=== PATIENT | male | born 1950 | race Caucasian/White ===

== ENCOUNTER 2018-06-30 11:36 | Emergency (ER) | payer OTHER ==
[2018-06-30] MEDS ORDERED: ALBUTEROL 2.5 MG/3 ML NEB SOL ONE (12:59)
[2018-06-30] MEDS ORDERED: IPRATROPIUM BROM 0.5MG/2.5ML ONE (12:59)
[2018-06-30 13:13] LABS: Absolute Lymphocytes (CBC) 3.3 K/uL (0.7-4.9); Absolute Monocytes 0.9 K/uL (0.1-1.3); Absolute Neutrophil 7.8 K/uL (1.8-8.0); Basophils % 0.3 % (0-1.3); Eosinophils % 2.5 % (0-4.4); Hematocrit 38.8 % (39.6-49.0); Lymphocytes % 26.6 % (15.3-44.8); MCH 27.8 pg (27.0-35.0); MCV 83.8 fL (80-100); MPV 8.8 fL (7.6-11.3); RBC Red Blood Cell Count 4.63 M/uL (4.33-5.43)
[2018-06-30 13:20] LABS: Protime INR 1.07
[2018-06-30 13:33] LABS: ALT/SGPT 25 U/L (12-78); AST/SGOT 15 U/L (15-37); Albumin 3.1 g/dL (3.4-5.0); Alkaline Phosphatase 108 U/L (45-117); BUN Blood Urea Nitrogen 16 mg/dL (7-18); Bicarbonate 26 mmol/L (21-32); Bilirubin Direct < 0.1 mg/dL (0-0.2); Bilirubin Total 0.3 mg/dL (0.2-1.0); Glucose Level 122 mg/dL (74-106); Magnesium 1.8 mg/dL (1.8-2.4); NT PRO-BNP 171 pg/mL (<125); Potassium 4.9 mmol/L (3.5-5.1); Protein, Total 7.8 g/dL (6.4-8.2); Sodium Level 137 mmol/L (136-145); Troponin (Emerg Dept Use Only) < 0.02 ng/mL (0.0-0.045)
[2018-06-30] MEDS ORDERED: AZITHROMYCIN 250 MG TAB ONE (15:19)
[2018-06-30] MEDS ORDERED: CEFTRIAXONE/SWI 1gm 1 GM/10 ML SYR ONE (15:19)
--- NOTE | 2018-06-30 15:51 | ER ---
Nurse's Notes [facility] Name: Justo Pulido Age: 68 yrs Sex: Male : 1950 Arrival Date: 06/30/2018 Time: 11:41 Bed 16 Private MD: None, None Diagnosis: Acute bronchitis Presentation: 06/30 11:46 Presenting complaint: Patient states: I have pain in my back, neck, and chest when I la1 cough, I was dx with pulmonary fibrosis in April. Transition of care: patient was not received from another setting of care. Onset of symptoms was June 30, 2018. Risk Assessment: Do you want to hurt yourself or someone else? Patient reports no desire to harm self or others. Initial Sepsis Screen: Does the patient meet any 2 criteria? No. Patient's initial sepsis screen is negative. Does the patient have a suspected source of infection? No. Patient's initial sepsis screen is negative. Care prior to arrival: None. 11:46 Method Of Arrival: Ambulatory la1 11:46 Acuity: RO 3 la1 Historical: - Allergies: 11:47 Cortisone; la1 - PMHx: 11:47 pulmonary fibrosis; la1 - Immunization history:: Adult Immunizations up to date. - Social history:: Smoking status: Patient/guardian denies using tobacco. - Ebola Screening: : No symptoms or risks identified at this time. Screenin:15 Abuse screen: Denies threats or abuse. Nutritional screening: No deficits noted. rb1 Tuberculosis screening: No symptoms or risk factors identified. Fall Risk None identified. Assessment: 12:15 General: Appears uncomfortable, Behavior is calm, cooperative, Denies fever. Pain: rb1 Complains of pain in generalized Pain currently is 6 out of 10 on a pain scale. Pain began Midnight. Neuro: Level of Consciousness is awake, alert, obeys commands, Oriented to person, place, time, situation. Cardiovascular: Capillary refill < 3 seconds is brisk in bilateral fingers. Respiratory: Airway is patent Respiratory effort is even, unlabored, Respiratory pattern is regular, symmetrical. Respiratory: Reports cough that is non-productive, pain with cough. GI: Patient currently denies diarrhea, nausea, vomiting. : No signs and/or symptoms were reported regarding the genitourinary system. Derm: Skin is pink, warm \T\ dry. 13:13 Reassessment: XRAY at bedside at this time. to obtain image ordered. ss 13:17 Reassessment: Patient appears in no apparent distress at this time. Patient and/or ss family updated on plan of care and expected duration. Pain level reassessed. Patient is alert, oriented x 3, equal unlabored respirations, skin warm/dry/pink. 14:10 Reassessment: Patient appears in no apparent distress at this time. Patient and/or rb1 family updated on plan of care and expected duration. Pain level reassessed. Patient is alert, oriented x 3, equal unlabored respirations, skin warm/dry/pink. 15:15 Reassessment: Patient appears in no apparent distress at this time. No changes from rb1 previously documented assessment. 16:09 Reassessment: Patient appears in no apparent distress at this time. Patient and/or rb1 family updated on plan of care and expected duration. Pain level reassessed. Patient is alert, oriented x 3, equal unlabored respirations, skin warm/dry/pink. Vital Signs: 11:47 BP 151 / 85; Pulse 68; Resp 16; Temp 98.0(O); Pulse Ox 98% on R/A; Weight 104.33 kg; la1 Height 5 ft. 11 in. (180.34 cm); 12:15 BP 139 / 83; Pulse 60; Resp 19; Pulse Ox 96% on R/A; rb1 13:15 BP 121 / 78; Pulse 66; Resp 19; Pulse Ox 95% on R/A; rb1 14:15 BP 129 / 81; Pulse 64; Resp 14; Pulse Ox 95% on R/A; rb1 15:15 BP 145 / 82; Pulse 66; Resp 18; Pulse Ox 96% on R/A; rb1 16:09 BP 133 / 78; Pulse 65; Resp 19; Pulse Ox 96% on R/A; rb1 11:47 Body Mass Index 32.08 (104.33 kg, 180.34 cm) la1 ED Course: 11:41 Patient arrived in ED. sb2 11:41 None, None is Private Physician. sb2 11:47 Triage completed. la1 11:48 Arm band placed on right wrist. la1 12:12 Song Casarez PA is PHCP. juanita 12:12 Michael Newman MD is Attending Physician. juanita 12:15 Patient has correct armband on for positive identification. Call light in reach. Side rb1 rails up X 1. mat roller on. Pulse ox on. NIBP on. 12:20 Donna White, RN is Primary Nurse. rb1 13:08 Initial lab(s) drawn, by me, sent to lab. Flu and/or RSV swab sent to lab. Inserted dh3 saline lock: 20 gauge in right antecubital area, using aseptic technique. Blood collected. 13:19 XRAY Chest (1 view) In Process Unspecified. EDMS 16:35 No provider procedures requiring assistance completed. IV discontinued, intact, rb1 bleeding controlled, No redness/swelling at site. Pressure dressing applied. Administered Medications: 12:55 Drug: DuoNeb (3:1) (2.5 mg - 0.5 mg) 3 ml Route: Nebulizer; rb1 15:22 Follow up: Response: No adverse reaction rb1 13:20 Drug: AZITHromycin 500 mg Route: PO; rb1 13:45 Follow up: Response: No adverse reaction rb1 15:10 CANCELLED (changed order to IVP): Rocephin - (cefTRIAXone) 1 grams IVPB once over 30 rb1 mins; (mix in 50 mL NS) 15:20 Drug: Rocephin 1 grams Route: IV; Rate: calculated rate; Site: right antecubital; rb1 Outcome: 15:50 Discharge ordered by . [facility] 16:35 Patient left the ED. rb1 16:35 Discharged to home ambulatory. rb1 16:35 Condition: stable 16:35 Discharge instructions given to patient, Instructed on discharge instructions, follow up and referral plans. Demonstrated understanding of instructions, follow-up care, medications, Prescriptions given X 1. Signatures: Dispatcher [employer] EDMS Song Casarez PA PA jmm Smirch, Shelby, RN RN ss Attema, Lee, RN RN la1 Donna White, RN RN rb1 Mellisa Marcial 3 Vonda Vyas2 Corrections: (The following items were deleted from the chart) 17:06 16:56 Patient left the ED. rb1 rb1 17:16 15:24 BP 145 / 82; Pulse 66bpm; Resp 18bpm; Pulse Ox 96% RA; rb1 rb1
--- NOTE | 2018-06-30 15:51 | EDPHYS ---
Physician Documentation [facility] Name: Justo Pulido Age: 68 yrs Sex: Male : 1950 Arrival Date: 06/30/2018 Time: 11:41 Bed 16 Private MD: None, None ED Physician iMchael Newman HPI: 06/30 12:41 This 68 yrs old Male presents to ER via Ambulatory with complaints of Pain jmm All Over, PAINFUL COUGH. 12:41 The patient or guardian reports cough. Onset: The symptoms/episode began/occurred jmm gradually, 4 week(s) ago. Associated signs and symptoms: Pertinent positives: chest pain, with cough. This is a 68 year old male with a history of pulmonary fibrosis. Patient states that 4 weeks ago he was diagnosed with pleurisy. Patient complains of chest pain with cough since. Patient states that yesterday his symptoms had decreased in severity but states that this past evening his symptoms returned. Patient denies hemoptysis or fever. . Historical: - Allergies: 11:47 Cortisone; la1 - PMHx: 11:47 pulmonary fibrosis; la1 - Immunization history:: Adult Immunizations up to date. - Social history:: Smoking status: Patient/guardian denies using tobacco. - Ebola Screening: : No symptoms or risks identified at this time. ROS: 12:41 Constitutional: Negative for fever, chills, and weight loss. jmm 12:41 Abdomen/GI: Negative for abdominal pain, nausea, vomiting, diarrhea, and constipation, Back: Negative for injury and pain, MS/Extremity: Negative for injury and deformity, Skin: Negative for injury, rash, and discoloration, Neuro: Negative for headache, weakness, numbness, tingling, and seizure. 12:41 Cardiovascular: Positive for chest pain, with cough. 12:41 Respiratory: Positive for cough. 12:41 All other systems are negative. Exam: 12:41 Constitutional: This is a well developed, well nourished patient who is awake, alert, jmm and in no acute distress. Head/Face: atraumatic. Chest/axilla: Normal chest wall appearance and motion. Cardiovascular: Regular rate and rhythm. No edema appreciated 12:41 Abdomen/GI: Non distended, soft Back: Normal ROM Skin: General appearance color normal MS/ Extremity: Moves all extremities, no obvious deformities appreciated, no edema noted to the lower extremities Neuro: Awake and alert, normal gait Psych: Behavior is normal, Mood is normal, Patient is cooperative and pleasant 12:41 Respiratory: the patient does not display signs of respiratory distress, Respirations: normal, Breath sounds: are clear throughout. Vital Signs: 11:47 BP 151 / 85; Pulse 68; Resp 16; Temp 98.0(O); Pulse Ox 98% on R/A; Weight 104.33 kg; la1 Height 5 ft. 11 in. (180.34 cm); 12:15 BP 139 / 83; Pulse 60; Resp 19; Pulse Ox 96% on R/A; rb1 13:15 BP 121 / 78; Pulse 66; Resp 19; Pulse Ox 95% on R/A; rb1 14:15 BP 129 / 81; Pulse 64; Resp 14; Pulse Ox 95% on R/A; rb1 15:15 BP 145 / 82; Pulse 66; Resp 18; Pulse Ox 96% on R/A; rb1 16:09 BP 133 / 78; Pulse 65; Resp 19; Pulse Ox 96% on R/A; rb1 11:47 Body Mass Index 32.08 (104.33 kg, 180.34 cm) la1 MDM: 12:24 Patient medically screened. [facility] 12:41 Data reviewed: vital signs, nurses notes. Data interpreted: Pulse oximetry: on room air jm is 98 %. Interpretation: normal. 15:50 Counseling: I had a detailed discussion with the patient and/or guardian regarding: the [facility] historical points, exam findings, and any diagnostic results supporting the discharge/admit diagnosis, lab results, the need for outpatient follow up, the need for further work-up and treatment in the hospital, to return to the emergency department if symptoms worsen or persist or if there are any questions or concerns that arise at home. Refusal of service: The patient/guardian displays adequate decision making capability and despite a detailed discussion of alternatives, benefits, risks, and consequences refuses: Admission to the hospital for further work-up and treatment. 06/30 12:36 Order name: Basic Metabolic Panel; Complete Time: 13:42 [facility] 06/30 12:36 Order name: CBC with Diff [facility] 06/30 12:36 Order name: LFT's; Complete Time: 13:42 [facility] 06/30 12:36 Order name: Magnesium; Complete Time: 13:42 [facility] 06/30 12:36 Order name: NT PRO-BNP; Complete Time: 13:42 [facility] 06/30 12:36 Order name: PT-INR; Complete Time: 13:42 [facility] 06/30 12:36 Order name: Troponin (emerg Dept Use Only); Complete Time: 13:42 [facility] 06/30 12:36 Order name: XRAY Chest (1 view) [facility] 06/30 12:36 Order name: Influenza Screen (a \T\ B); Complete Time: 13:33 [facility] 06/30 13:20 Order name: CBC Smear Scan [facility] 06/30 12:36 Order name: EKG; Complete Time: 12:37 [facility] 06/30 12:36 Order name: Cardiac monitoring; Complete Time: 13:17 [facility] 06/30 12:36 Order name: EKG - Nurse/Tech; Complete Time: 13:17 [facility] 06/30 12:36 Order name: IV Saline Lock; Complete Time: 13:06 [facility] 06/30 12:36 Order name: Labs collected and sent; Complete Time: 13:06 [facility] 06/30 12:36 Order name: O2 Per Protocol; Complete Time: 13:06 [facility] 06/30 12:36 Order name: O2 Sat Monitoring; Complete Time: 13:06 [facility] Administered Medications: 12:55 Drug: DuoNeb (3:1) (2.5 mg - 0.5 mg) 3 ml Route: Nebulizer; rb1 15:22 Follow up: Response: No adverse reaction rb1 13:20 Drug: AZITHromycin 500 mg Route: PO; rb1 13:45 Follow up: Response: No adverse reaction rb1 15:10 CANCELLED (changed order to IVP): Rocephin - (cefTRIAXone) 1 grams IVPB once over 30 rb1 mins; (mix in 50 mL NS) 15:20 Drug: Rocephin 1 grams Route: IV; Rate: calculated rate; Site: right antecubital; rb1 Disposition: 07/01 12:19 Co-signature as Attending Physician, Michael Newman MD I agree with the assessment and jun plan of care. Disposition: 06/30/18 15:50 Discharged to Home. Impression: Acute bronchitis. - Condition is Stable. - Discharge Instructions: Acute Bronchitis, Adult. - Prescriptions for Zithromax Z- Jon 250 mg Oral Tablet - take 1 tablet by ORAL route as directed for 5 days Day 1 - take two (2) tablets one time. Day 2, 3, 4 , 5 take one (1) tablet once daily.; 6 tablet. - Medication Reconciliation Form, Thank You Letter, Antibiotic Education, Prescription Opioid Use form. - Follow up: Private Physician; When: 1 - 2 days; Reason: Recheck today's complaints, Continuance of care, Re-evaluation by your physician. - Notes: Please follow up with your primary care provider in 1 to 2 days for reevaluation. please return to the ED if you develop worsening shortness of breath, chest pain, fever or any other concerning symptoms. Signatures: Dispatcher [employer] EDMS Michael Newman MD MD cha Mickail, Joel, PA PA jmm Attema, Lee, RN RN la1 Donna White, RN RN rb1 Corrections: (The following items were deleted from the chart) 06/30 15:10 14:54 Rocephin - (cefTRIAXone) 1 grams IVPB once over 30 mins; (mix in 50 mL NS) rb1 ordered. juanita 16:56 15:50 06/30/2018 15:50 Discharged to Home. Impression: Acute bronchitis. Condition is rb1 Stable. Forms are Medication Reconciliation Form, Thank You Letter, Antibiotic Education, Prescription Opioid Use. Follow up: Private Physician; When: 1 - 2 days; Reason: Recheck today's complaints, Continuance of care, Re-evaluation by your physician. jj
[2018-06-30 18:04] LABS: Platelet Estimate ADEQ; Urine White Blood Cell Casts OK
[2018-06-30 18:05] LABS: Blood Morphology Comment NOT SEEN (NOT SEEN)
--- NOTE | 2018-07-01 13:20 | RAD REPORT ---
EXAM DESCRIPTION: RAD - Chest Single View - 06/30/2018 11:29 pm CLINICAL HISTORY: Cough, shortness of breath The final report was delayed due to PACs and/or Fluency technical problems that existed at the time of the study or during expected/usual dictation time period. COMPARISON: None. TECHNIQUE: AP portable chest image was obtained 1313 hours . FINDINGS: No focal consolidation or mass. Diffuse interstitial thickening is present throughout the lung guan. On a baseline study fibrosis, interstitial edema and interstitial infiltrate all have a similar appearance. No vascular engorgement. Heart size is normal with midline trachea. No measurable pleural effusion and no pneumothorax. No gross bony abnormality seen. No acute aortic findings suspe cted. IMPRESSION: Diffusely prominent interstitial markings throughout the lung guan without a focal mas s or consolidation. Chronic fibrosis, interstitial edema and interstitial infiltrate can all have a similar appearance on a baseline study.
--- NOTE | 2018-07-02 08:17 | EKG ---
Test Date: 2018-06-30 Test Time: 13:20:34 Risk Engineer: GABRIELLE MEASUREMENT RESULTS: Intervals: Rate: 66 UT: 178 QRSD: 148 QT: 410 QTc: 429 [place]: P: 52 UT: 178 QRS: -78 T: 29 INTERPRETIVE STATEMENTS: Sinus rhythm with premature atrial complexes in a pattern of bigeminy Right bundle branch block Left axis Abnormal ECG No previous ECG available for comparison Electronically Signed On 07-02-18 08:16:41 CDT by Rigo Dove
== END 2018-06-30 16:56 | disposition home or self-care (01) ==
LOC: ER 11:36
DX: J20.9 Acute bronchitis, unspecified (principal); Z88.8 Allergy status to other drugs, medicaments and biological substances
CPT/HCPCS: 36415; 71045; 80048; 80076; 83735; 83880; 84484; 85025; 85610; 87804 ×2; 93005; 94640; 96374; 99285; J0696

== ENCOUNTER 2019-03-02 10:11 | Emergency (ER) | payer OTHER ==
[2019-03-02] MEDS ORDERED: NA CHLORIDE 0.9% 500 ML ONE (11:44)
[2019-03-02] MEDS ORDERED: DIPHENHYDRAMINE 50 MG/ML VIAL ONE (11:44)
[2019-03-02] MEDS ORDERED: METHYLPREDNISOLONE 125 MG INJ ONE (11:44)
[2019-03-02] MEDS ORDERED: FAMOTIDINE 20 MG/2 ML VIAL IV ONE (11:44)
[2019-03-02 11:56] LABS: Absolute Lymphocytes (CBC) 3.2 K/uL (0.7-4.9); Absolute Monocytes 0.7 K/uL (0.1-1.3); Absolute Neutrophil 3.9 K/uL (1.8-8.0); Basophils % 0.7 % (0-1.3); Eosinophils % 3.6 % (0-4.4); Hematocrit 45.7 % (39.6-49.0); Lymphocytes % 38.5 % (15.3-44.8); MPV 9.9 fL (7.6-11.3); Monocytes % 9.1 % (3.3-12.3); RBC Red Blood Cell Count 5.53 M/uL (4.33-5.43)
[2019-03-02 12:16] LABS: Albumin 3.2 g/dL (3.4-5.0); Bilirubin Total 0.4 mg/dL (0.2-1.0); Potassium 4.5 mmol/L (3.5-5.1); Protein, Total 7.1 g/dL (6.4-8.2)
--- NOTE | 2019-03-02 12:20 | EDPHYS ---
Physician Documentation [facility] Name: Justo Pulido Age: 68 yrs Sex: Male : 1950 Arrival Date: 03/02/2019 Time: 10:12 Bed 19 Private MD: ED Physician Michael Newman HPI: 03/02 11:14 This 68 yrs old Male presents to ER via Ambulatory with complaints of Itching jun All Over. 11:14 The patient's rash thought to be caused by Eczema an unknown cause. The rash is located jun on the body diffusely. The rash can be described as erythematous, flat. Onset: The symptoms/episode began/occurred 5 day(s) ago. Associated signs and symptoms: Pertinent positives: None. Pertinent negatives: None. Severity of symptoms: At their worst the symptoms were mild in the emergency department the symptoms are unchanged. no fever no chills, nothing new. Treatment given at home: Benadryl. Historical: - Allergies: 10:30 Cortisone; iw - Home Meds: 10:30 Enalapril Oral once daily [Active]; metoprolol tartrate Oral once daily [Active]; Arava iw oral oral once daily [Active]; - PMHx: 10:30 pulmonary fibrosis; psoariasis; Rheumatoid Arthritis; iw - PSHx: 10:30 Heart stents; iw - Immunization history:: Adult Immunizations up to date. - Social history:: Smoking status: Patient/guardian denies using tobacco. - Ebola Screening: : No symptoms or risks identified at this time. ROS: 11:15 Constitutional: Negative for fever, chills, and weight loss, Eyes: Negative for injury, jun pain, redness, and discharge, ENT: Negative for injury, pain, and discharge, Neck: Negative for injury, pain, and swelling, Cardiovascular: Negative for chest pain, palpitations, and edema, Respiratory: Negative for shortness of breath, cough, wheezing, and pleuritic chest pain, Abdomen/GI: Negative for abdominal pain, nausea, vomiting, diarrhea, and constipation, Back: Negative for injury and pain, : Negative for injury, bleeding, discharge, and swelling, MS/Extremity: Negative for injury and deformity, Neuro: Negative for headache, weakness, numbness, tingling, and seizure, Psych: Negative for depression, anxiety, suicide ideation, homicidal ideation, and hallucinations, Allergy/Immunology: Negative for hives, rash, and allergies, Endocrine: Negative for neck swelling, polydipsia, polyuria, polyphagia, and marked weight changes, Hematologic/Lymphatic: Negative for swollen nodes, abnormal bleeding, and unusual bruising. 11:15 Skin: Positive for rash, diffusely. Exam: 11:15 Constitutional: This is a well developed, well nourished patient who is awake, alert, jun and in no acute distress. Head/Face: Normocephalic, atraumatic. Eyes: Pupils equal round and reactive to light, extra-ocular motions intact. Lids and lashes normal. Conjunctiva and sclera are non-icteric and not injected. Cornea within normal limits. Periorbital areas with no swelling, redness, or edema. ENT: Nares patent. No nasal discharge, no septal abnormalities noted. Tympanic membranes are normal and external auditory canals are clear. Oropharynx with no redness, swelling, or masses, exudates, or evidence of obstruction, uvula midline. Mucous membranes moist. Neck: Trachea midline, no thyromegaly or masses palpated, and no cervical lymphadenopathy. Supple, full range of motion without nuchal rigidity, or vertebral point tenderness. No Meningismus. Chest/axilla: Normal chest wall appearance and motion. Nontender with no deformity. No lesions are appreciated. Cardiovascular: Regular rate and rhythm with a normal S1 and S2. No gallops, murmurs, or rubs. Normal PMI, no JVD. No pulse deficits. Respiratory: Lungs have equal breath sounds bilaterally, clear to auscultation and percussion. No rales, rhonchi or wheezes noted. No increased work of breathing, no retractions or nasal flaring. Abdomen/GI: Soft, non-tender, with normal bowel sounds. No distension or tympany. No guarding or rebound. No evidence of tenderness throughout. Back: No spinal tenderness. No costovertebral tenderness. Full range of motion. Male : Normal genitalia with no discharge or lesions. Skin: Warm, dry with normal turgor. Normal color with no rashes, no lesions, and no evidence of cellulitis. MS/ Extremity: Pulses equal, no cyanosis. Neurovascular intact. Full, normal range of motion. Neuro: Awake and alert, GCS 15, oriented to person, place, time, and situation. Cranial nerves II-XII grossly intact. Motor strength 5/5 in all extremities. Sensory grossly intact. Cerebellar exam normal. Normal gait. Psych: Awake, alert, with orientation to person, place and time. Behavior, mood, and affect are within normal limits. Vital Signs: 10:30 BP 141 / 92; Pulse 69; Resp 16; Temp 97.7; Pulse Ox 97% ; Weight 99.79 kg; Height 5 ft. iw 11 in. (180.34 cm); Pain 0/10; 10:30 Body Mass Index 30.68 (99.79 kg, 180.34 cm) iw MDM: 10:16 Patient medically screened. [facility] 03/02 11:15 Order name: CBC with Diff; Complete Time: 12:01 [facility] 03/02 11:15 Order name: Comprehensive Metabolic Panel; Complete Time: 12:18 [facility] Administered Medications: 11:54 Drug: SOLU-Medrol 125 mg Route: IVP; Site: right femoral; iw 12:38 Follow up: Response: No adverse reaction; Marked relief of symptoms em 11:54 Drug: NS 0.9% 500 ml Route: IV; Rate: bolus; Site: right antecubital; iw 12:39 Follow up: IV Status: Completed infusion; IV Intake: 500ml em 11:55 Drug: Pepcid 40 mg Route: IVP; Site: right antecubital; iw 12:38 Follow up: Response: No adverse reaction; Marked relief of symptoms em 11:57 Drug: Benadryl 25 mg Route: IVP; Site: right antecubital; iw 12:38 Follow up: Response: No adverse reaction; Marked relief of symptoms em Disposition: 03/02/19 12:19 Discharged to Home. Impression: Dermatitis, unspecified, Unspecified kidney failure - insufficency. - Condition is Stable. - Discharge Instructions: Contact Dermatitis, Rash, Rash, [id number], Contact Dermatitis, [id number]. - Prescriptions for Benadryl 25 mg Oral Capsule - take 1 capsule by ORAL route every 6 hours As needed; 30 tablet. Pepcid 20 mg Oral Tablet - take 1 tablet by ORAL route every 12 hours for 10 days; 20 tablet. Medrol (Jon) 4 mg Oral Tablets, Dose Pack - take 1 tablet by ORAL route as directed - follow package instructions; 1 packet. - Medication Reconciliation Form, Thank You Letter, Antibiotic Education, Prescription Opioid Use form. - Follow up: Private Physician; When: 2 - 3 days; Reason: Recheck today's complaints, Continuance of care, Re-evaluation by your physician. - Problem is new. - Symptoms have improved. Signatures: Dispatcher [employer] Michael Hutton MD MD cha Munoz, Edgar, AUTISTIC TEACHER AUTISTIC TEACHER em Heather Interiano RN RN iw Corrections: (The following items were deleted from the chart) 12:39 11:14 Urine Dipstick-Ancillary ordered. jun em 12:44 12:19 03/02/2019 12:19 Discharged to Home. Impression: Dermatitis, unspecified; em Unspecified kidney failure - insufficency. Condition is Stable. Discharge Instructions: Contact Dermatitis, Rash, Rash, [id number], Contact Dermatitis, [id number]. Prescriptions for Benadryl 25 mg Oral Capsule - take 1 capsule by ORAL route every 6 hours As needed; 30 tablet, Pepcid 20 mg Oral Tablet - take 1 tablet by ORAL route every 12 hours for 10 days; 20 tablet, Medrol (Jon) 4 mg Oral Tablets, Dose Pack - take 1 tablet by ORAL route as directed - follow package instructions; 1 packet. and Forms are Medication Reconciliation Form, Thank You Letter, Antibiotic Education, Prescription Opioid Use. Follow up: Private Physician; When: 2 - 3 days; Reason: Recheck today's complaints, Continuance of care, Re-evaluation by your physician. Problem is new. Symptoms have improved. jun
--- NOTE | 2019-03-02 12:20 | ER ---
Nurse's Notes [facility] Name: Justo Pulido Age: 68 yrs Sex: Male : 1950 Arrival Date: 03/02/2019 Time: 10:12 Bed 19 Private MD: Diagnosis: Dermatitis, unspecified;Unspecified kidney failure-insufficency Presentation: 03/02 10:22 Presenting complaint: Patient states: C/O itching sensation that radiates from his feet iw to his chest to his hands intermittently X3 months. Transition of care: patient was not received from another setting of care. Onset of symptoms was November 09, 2018. Risk Assessment: Do you want to hurt yourself or someone else? Patient reports no desire to harm self or others. Initial Sepsis Screen: Does the patient meet any 2 criteria? No. Patient's initial sepsis screen is negative. Does the patient have a suspected source of infection? No. Patient's initial sepsis screen is negative. Care prior to arrival: None. 10:22 Method Of Arrival: Ambulatory iw 10:22 Acuity: RO 4 iw Historical: - Allergies: 10:30 Cortisone; iw - Home Meds: 10:30 Enalapril Oral once daily [Active]; metoprolol tartrate Oral once daily [Active]; Arava iw oral oral once daily [Active]; - PMHx: 10:30 pulmonary fibrosis; psoariasis; Rheumatoid Arthritis; iw - PSHx: 10:30 Heart stents; iw - Immunization history:: Adult Immunizations up to date. - Social history:: Smoking status: Patient/guardian denies using tobacco. - Ebola Screening: : No symptoms or risks identified at this time. Screenin:00 Abuse screen: Denies threats or abuse. Nutritional screening: No deficits noted. em Tuberculosis screening: No symptoms or risk factors identified. Fall Risk None identified. Assessment: 11:56 Reassessment: Patient appears in no apparent distress at this time. Patient and/or em family updated on plan of care and expected duration. Pain level reassessed. Patient is alert, oriented x 3, equal unlabored respirations, skin warm/dry/pink. 12:00 Reassessment: I agree with above assessment by Lambert Vargas LVN. iw Vital Signs: 10:30 BP 141 / 92; Pulse 69; Resp 16; Temp 97.7; Pulse Ox 97% ; Weight 99.79 kg; Height 5 ft. iw 11 in. (180.34 cm); Pain 0/10; 10:30 Body Mass Index 30.68 (99.79 kg, 180.34 cm) iw ED Course: 10:12 Patient arrived in ED. rg4 10:16 Michael Newman MD is Attending Physician. jun 10:18 Lambert Vargas LVN is Primary Nurse. em 10:25 Triage completed. iw 10:31 Arm band placed on. iw 11:00 Patient has correct armband on for positive identification. Bed in low position. Call em light in reach. Pulse ox on. NIBP on. 11:50 Initial lab(s) drawn, by me, sent to lab. Inserted saline lock: 20 gauge in right em antecubital area, using aseptic technique. Blood collected. 12:05 Pillow given. jp3 12:43 No provider procedures requiring assistance completed. IV discontinued, intact, em bleeding controlled, No redness/swelling at site. Pressure dressing applied. Administered Medications: 11:54 Drug: SOLU-Medrol 125 mg Route: IVP; Site: right femoral; iw 12:38 Follow up: Response: No adverse reaction; Marked relief of symptoms em 11:54 Drug: NS 0.9% 500 ml Route: IV; Rate: bolus; Site: right antecubital; iw 12:39 Follow up: IV Status: Completed infusion; IV Intake: 500ml em 11:55 Drug: Pepcid 40 mg Route: IVP; Site: right antecubital; iw 12:38 Follow up: Response: No adverse reaction; Marked relief of symptoms em 11:57 Drug: Benadryl 25 mg Route: IVP; Site: right antecubital; iw 12:38 Follow up: Response: No adverse reaction; Marked relief of symptoms em Intake: 12:39 IV: 500ml; Total: 500ml. em Outcome: 12:19 Discharge ordered by . [facility] 12:43 Discharged to home ambulatory. em 12:43 Condition: good 12:43 Discharge instructions given to patient, Instructed on discharge instructions, follow up and referral plans. medication usage, Demonstrated understanding of instructions, follow-up care, medications, Prescriptions given X 3. 12:44 Patient left the ED. em Signatures: Michael Newman MD MD cha Munoz, Lambert, [employer] Heather Webber, RN RN Dayami Gaytan rg4 Sylvain Burk jp3
== END 2019-03-02 12:44 | disposition home or self-care (01) ==
LOC: ER 10:11
DX: R21 Rash and other nonspecific skin eruption (principal); L30.9 Dermatitis, unspecified; N19 Unspecified kidney failure; Z88.8 Allergy status to other drugs, medicaments and biological substances
CPT/HCPCS: 85025; 36415; 80053; 99284; J2930